=== PATIENT | female | born 1980 | race Caucasian/White ===

== ENCOUNTER → 2023-08-19 17:31 | Outpatient (REF) | payer BC, SELFPAY | LOC: RAD 17:31 | PROVIDERS: ATTENDING PHYSICIAN Physician Assistant Medical | DX: G44.52 New daily persistent headache (NDPH) (principal); R51.9 Headache, unspecified | CPT/HCPCS: 70450 ==

== ENCOUNTER → 2024-05-20 07:23 | Outpatient (REF) | payer BC, SELFPAY | LOC: HWWDC 07:23 | PROVIDERS: ATTENDING PHYSICIAN Nurse Practitioner Obstetrics & Gynecology; FAMILY PHYSICIAN Physician Assistant Medical | DX: Z12.31 Encounter for screening mammogram for malignant neoplasm of breast (principal) | CPT/HCPCS: 77063; 77067 ==

== ENCOUNTER → 2024-10-01 09:18 | Outpatient (REF) | payer BC, SELFPAY | LOC: WDC 09:18 | PROVIDERS: ATTENDING PHYSICIAN Nurse Practitioner Women's Health; FAMILY PHYSICIAN Physician Assistant Medical | DX: N64.4 Mastodynia (principal) | CPT/HCPCS: 76642; 77061; 77065 ==

== ENCOUNTER 2025-03-04 09:17 | Emergency (ER) | payer BC, SELFPAY ==
[2025-03-04 09:23] VITALS: BP 130/89
[2025-03-04] MEDS: ATIVAN 1 MG PO (10:29)
--- NOTE | 2025-03-04 10:32 | ED.GENMED ---
History of Present Illness
General
Chief Complaint: Anxiety
Source: patient and other ([facility])
Exam Limitations: none
Time Seen by Provider: 03/04/25 09:42
Nursing documentation reviewed up to this point in time: agreed with
History of Present Illness
History of Present Illness:
The patient is a 24-year-old female who presents with symptoms of anxiety and stress. She reports that the symptoms have exacerbated since starting a new job two weeks ago. The patient states, 'mentally, I feel all over the place,' indicating
significant psychological distress. She has been experiencing difficulty sleeping despite taking alprazolam (Xanax) at night and feels exhausted. There is no alcohol consumption reported recently. The patient has history of anxiety, PTSD which she
believes has been triggered with starting this new job 2 weeks ago. She states she quit today. She has been in contact with her PCP and she resumed Prozac just 2 days ago. She had been prescribed this in the past. She has alprazolam 0.5 mg which
she takes sporadically generally half a tablet at nighttime as needed. She admits to poor sleep, poor oral intake over the past several days, moderate stress but adamantly denies suicidal thoughts nor thoughts of self-harm. She presents to the ED
requesting to speak with crisis. No previous hospitalizations. She denies alcohol or drug use.
She arrives to the ED accompanied by her brother.
She denies risk of , has IUD in place. She was wondering if hormonal fluctuations may be adding to her symptoms but admits to no hot flashes. She generally does not get her menstrual period with IUD in place.
She has been maintained on Wegovy since November. Wondering if this could be a factor but admits that anxiety has been well-controlled until starting her new job 2 weeks ago.
Past History
Past History
ED Past Medical History: Psychiatric
ED Past Surgical History: and Orthopedic
Social History
Tobacco: Non-smoker
Alcohol: None
Drug: None
Personal:
Living: with family
Employment: Employed
Family History
Family History: CAD (paternal and maternal grandparents)
Phy Exam
Physical Exam
Physical Exam:
GENERAL: 44-year-old woman appears her stated age, awake and alert, pleasant, mildly anxious but easily communicative. Accompanied by her brother who appears supportive.
EYE: pupils equal and reactive. anicteric
NECK: Supple, nontender, no meningismus, no significant adenopathy.
ENT: oral mucosa is moist. No rhinorrhea.
CARDIAC: Regular rate and rhythm. no murmur.
LUNGS: Clear breath sounds bilaterally, no acute respiratory distress, no wheezes/rales/rhonchi
ABDOMEN: Soft, nondistended, without focal tenderness
NEUROLOGICAL: Alert and oriented x3, no focal neuro deficits. Gait is kennedy and steady.
SKIN: Warm and dry, normal color, skin intact. No rash.
MUSCULOSKELETAL: No C/C/E. peripheral pulses are full and equal b/l. No palpable tenderness.
PSYCH: Moderately anxious. Denies suicidal thoughts or plan. Goal and future oriented.
Course
Orders/Labs/Results
Orders:
Orders
03/04/25 09:27
Crisis Consult Urgent
Reason for Consult: anxiety
03/04/25 10:21
Lorazepam [Ativan] 1 mg PO NOW STA
Vital Signs
Initial and Last Documented VS:
Initial Vital Signs
Temp Pulse Resp BP Pulse Ox
97.4 F 80 18 130/89 98
03/04/25 09:23 03/04/25 09:23 03/04/25 09:23 03/04/25 09:23 03/04/25 09:23
Last Documented Vital Signs
Temp Pulse Resp BP Pulse Ox
97.4 F 80 18 130/89 98
03/04/25 09:23 03/04/25 09:23 03/04/25 09:23 03/04/25 09:23 03/04/25 10:39
MDM/Problems Addressed
Differential Diagnosis Includes:
The Differential Diagnosis includes, in no particular order and is not limited to:
1. Generalized Anxiety Disorder
2. Adjustment Disorder with Anxiety
3. Major Depressive Disorder
4. Panic Disorder
5. Acute Stress Reaction
6. Hyperthyroidism
7. Substance-Induced Anxiety Disorder
8. Perimenopause-related mood changes
9. Post-Traumatic Stress Disorder
10. Medication Side Effects
MDM/Problems Addressed:
- Continue taking alprazolam 0.5 mg at night as needed for anxiety.
- Continue Prozac, initiated just 2 days ago. We did discuss that he could take a good 2 to 3 weeks before patient is feeling improved.
- Initiate a dose of lorazepam to manage acute symptoms of anxiety.
- Consider enrolling in an intensive outpatient program for further support.
- Encourage patient to maintain hydration and rest to manage exhaustion.
Patient has been evaluated by [facility]. She is agreeable to intensive outpatient program and referrals will be made for urgent follow-up within the next 1 to 2 days.
Patient reports poor sleep, poor oral intake over the past few days but clinically well in appearance and appears euvolemic.
Will give a dose of lorazepam orally now and she has been offered a box lunch.
At this point no indication for laboratory studies. She denies recreational drug use and there is nothing to suspect toxidrome on exam.
Encouraged prompt follow-up with PCP as well.
Return precautions discussed.
Chronic conditions affecting care:
History of anxiety/PTSD
Chronic conditions affecting care: Psychiatric illness
Acute Exacerbation and/or Progression of Chronic Illness: Psychiatric illness
*Pulse Oximetry
SaO2: 98
Oxygen Mode of Delivery: Room air
Patient hypoxic: no
*Critical Care Note
Total Time (30-74mins, 75-104mins- exclusive of procedures): Not Applicable
Patient Management
Social determinants of health affecting care: Strong social support
Discussion with other providers: Other ([facility])
Escalation/DeEscalation of care consider admission/obs:
Consider inpatient psychiatric treatment but patient declines and overall does not appear to be warranted. She denies suicidal thoughts nor thoughts of self-harm. She is future and goal oriented. Fair insight and judgment.
She is agreeable to intensive outpatient treatment program. Referral has been placed by [facility].
ED Attending Note
-
Portions of this chart may have been created with voice recognition software.� Occasional wrong word or��sound alike� substitutions may have occurred due to the inherent limitations of voice recognition software.
Discharge Plan
Departure
Patient Disposition: Home (Routine Discharge)
Date of Disposition: 03/04/25
Time of Disposition: 10:43
Patient with high blood pressure during this ER visit?: No
Condition: Good
Discharge Problem:
Acute exacerbation of anxiety disorder
Instructions: Generalized Anxiety Disorder (DC)
Prescriptions:
Discontinued
Gummies
2 tab.chew PO DAILY
oxycodone-acetaminophen 5 MG/325 MG tablet
1 tab PO Q4HPRN PRN (Reason: moderate pain) Qty: 10 0RF
ibuprofen 600 MG tablet
600 mg PO Q4HPRN PRN (Reason: cramps) 0RF
Referrals:
Reshma Castellanos PA [Family Provider, Family Practice] - Call in 1-3 days for appt
Interventions
Interventions:
*Risk Screen - Suicide Last Done: 03/04/25 09:23
*General Assessment Last Done: 03/04/25 09:23
*Neglect/Abuse Screening Last Done: 03/04/25 09:23
Discharge Date and Time
Print Language: SINHALA
[2025-03-04 11:10] VITALS: BP 142/76
== END 2025-03-04 11:13 | disposition home or self-care (01) ==
LOC: EMR 09:17
PROVIDERS: EMERGENCY PHYSICIAN Emergency Medicine; FAMILY PHYSICIAN Physician Assistant Medical
DX: F41.9 Anxiety disorder, unspecified (principal); F43.10 Post-traumatic stress disorder, unspecified; Z56.1 Change of job
CPT/HCPCS: 99283